=== PATIENT | male | born 1955 | race Caucasian/White ===

== ENCOUNTER 2018-01-30 11:13 | Emergency (ER) | payer OTHER, SELFPAY ==
[2018-01-30 11:31] VITALS: BP 157/81; PULSE 59; RESP 17; TEMP 36.9; O2SAT 98; BMI 31.3
--- NOTE | 2018-01-30 11:42 | PC.NURSE ---
Pt has multiple small abrasions and lacerations to posterior left hand.
--- NOTE | 2018-01-30 11:44 | ED_ITS ---
HPI - Skin/Abscess/Foreign Bdy General Chief complaint: Skin/Abscess/Foreign Body Stated complaint: CAT BITE Time Seen by Provider: 01/30/18 11:16 Source: patient Mode of arrival: ambulatory Limitations: no limitations History of Present Illness HPI narrative: Uwbhj-swpr-[id number] male here for evaluation of multiple cat bites and scratches to his left hand. Patient states that it was his 's CT. He states that it is a purely indoor cat. They were trying to catch the CT so they can take it to the vet and it bit and scratched him. The CT has not been acting abnormal recently. Patient is up-to-date on his tetanus. Has not tried anything for prior to arrival. Related Data Home Medications Medication Instructions Recorded Confirmed CALCIUM CARBONATE 500 mg PO QDAY #0 06/17/11 Coenzyme Q10 (#COQ10) 300 mg PO Q DAY #0 06/17/11 INSULIN LISPRO (#HUMALOG (SHORT 100 u SC SLIDE #0 06/17/11 ACTING)) METHOCARBAMOL (#CARBACOT) 750 mg PO TID #0 06/17/11 Pravastatin Sodium (#PRAVACHOL) 20 mg PO QDAY #0 06/17/11 clonidine HCl 0.2 mg PO BID #0 06/17/11 doxazosin [Cardura] 2 mg PO QDAY #0 06/17/11 furosemide 40 mg PO BID #0 06/17/11 losartan [Cozaar] 100 mg PO QDAY #0 06/17/11 meloxicam [Mobic] 7.5 mg PO QDAY #0 06/17/11 LEVOTHYROXINE SODIUM (#SYNTHROID) 0.25 mg PO #0 02/13/12 amlodipine [Norvasc] 5 mg PO QDAY #0 02/13/12 insulin glargine [Lantus U-100 40 unit SQ QHS #0 02/13/12 Insulin] atorvastatin Q DAY #0 12/26/16 metformin [Glucophage XR] QDAY #0 12/26/16 potassium chloride #0 12/26/16 tramadol PRN #0 12/26/16 Previous Rx's Medication Instructions Recorded amoxicillin-pot clavulanate 1 tab PO Q12H 10 Days #20 tab 01/30/18 Allergies Allergy/AdvReac Type Severity Reaction Status Date / Time SURGICAL GELL Allergy Unknown BLISTERS Uncoded 09/17/17 11:51 TAPE Allergy Unknown BLISTER Uncoded 09/17/17 11:51 Review of Systems Constitutional Denies fever(s) Musculoskeletal Comments: Swelling to left hand Integumentary/Breasts Comments: Multiple cuts and puncture wounds to the back of the left hand Neurologic Comments: No numbness or tingling to the left upper extremity Hematologic/Lymphatic Denies easy bleeding and Denies easy bruising PFSH Surgical History History of carpal tunnel repair History of carpal tunnel repair History of thyroidectomy Status post cholecystectomy Status post knee surgery Status post rotator cuff repair Family History Brother Age: 64 Hypertension High cholesterol Father Age: 84 High cholesterol Grandmother Diabetes mellitus Mother Age: 84 Diabetes mellitus Sister Age: 53 Diabetes mellitus High cholesterol Seizure disorder Social History Smoking Status: Never smoker Exam Initial Vital Signs Initial Vital Signs: Vital Signs Temperature 98.4 F 01/30/18 11:31 Pulse Rate 59 L 01/30/18 11:31 Respiratory Rate 17 01/30/18 11:31 Blood Pressure 157/81 H 01/30/18 11:31 Pulse Oximetry 98 01/30/18 11:31 Const General: cooperative, healthy appearing, comfortable, well developed, well groomed and No acute distress Orientation: alert, awake and oriented x3 Cardio Pulses: radial pulses present on the left Skin Other: Patient with multiple scratches the back of his left hand with the longest being approximately 1 cm and the rest less than 1/2 cm. Has also multiple puncture wounds. No active bleeding. Neuro Other: Sensation intact to light touch left upper extremity Extrem Other: Left wrist unremarkable Neck fingers unremarkable Swelling to the left hand. Psych Appearance: grossly normal and well kempt Course Orders Ordered: ED Orders 01/30/18 11:49 XR hand LT min 3V Stat Vital Signs - 8 hr 01/30/18 11:31 Temperature 98.4 F Pulse Rate 59 L Respiratory Rate 17 Blood Pressure 157/81 H Pulse Oximetry 98 MDM - Skin/Abscess/Foreign Bdy Imaging Data X-ray hand: Radiologist's impression: [address] [address] XRay Report Signed Patient: Chase Lopez MMR#: [id number] : 7Acct:[id number] Age/Sex: 62 / MDate of Service: 01/30/18 Loc: ED Accession Number: [id number] Procedure: XR hand LT min 3V Ordering Provider: Esteban aL D.O. PROCEDURE: XR HAND LT MIN 3V INDICATIONS: Cat bite dorsum eval for FB TECHNIQUE: 3 views of the hand(s) acquired. COMPARISON: None. FINDINGS: Bones: No fractures or dislocations. Carpal bones are normally aligned. No suspicious bony lesions. Soft tissues: No suspicious soft tissue calcifications. No radiodense foreign body identified. No soft tissue gas. Mild soft tissue swelling noted over the dorsum of the hand. IMPRESSION: No radiodense foreign body. Dictated by: Caterina Christina MD, PhD on 01/30/2018 at 12:01 Approved by: Caterina Christina MD, PhD on 01/30/2018 at 12:02 [facility] Narrative Medical decision making narrative: Patient is up-to-date on his tetanus. This is a domesticated house cat that has been acting ?normal? per the patient. Feel this is low risk for rabies. Will hold on rabies immunization for now. X- ray show no radiodense foreign bodies. Neurovascularly intact. Patient did wash his hand here in the emergency department. Will send home with Augmentin. He was given return precautions. He expressed understanding and agreement plan. Discharge Plan Departure Patient Disposition: Home Clinical Impression: Cat bite of hand Instructions: How to Care for a Domestic Animal Bite, DI for Animal Bites Activity Restrictions/Additional Instructions: Make sure you keep your hand elevated. Put ice on the back of your hand. You can wash your hand with soap and water. Take the antibiotics as directed. You can take anti-inflammatories such as Motrin/ibuprofen and/or Tylenol/ acetaminophen for any pain. Return to the emergency department for any new or worsening symptoms. Prescriptions: New amoxicillin-pot clavulanate 875-125 mg tablet 1 tab PO Q12H 10 Days Qty: 20 RF: 0 No Action CALCIUM CARBONATE 500 mg PO QDAY Qty: 0 RF: 0 clonidine HCl 0.1 MG tablet 0.2 mg PO BID Qty: 0 RF: 0 doxazosin [Cardura] 2 MG tablet 2 mg PO QDAY Qty: 0 RF: 0 Coenzyme Q10 (#COQ10) 300 mg PO Q DAY Qty: 0 RF: 0 furosemide 40 MG tablet 40 mg PO BID Qty: 0 RF: 0 INSULIN LISPRO (#HUMALOG (SHORT ACTING)) 100 u SC SLIDE Qty: 0 RF: 0 losartan [Cozaar] 100 MG tablet 100 mg PO QDAY Qty: 0 RF: 0 meloxicam [Mobic] 7.5 MG tablet 7.5 mg PO QDAY Qty: 0 RF: 0 METHOCARBAMOL (#CARBACOT) 750 mg PO TID Qty: 0 RF: 0 Pravastatin Sodium (#PRAVACHOL) 20 mg PO QDAY Qty: 0 RF: 0 LEVOTHYROXINE SODIUM (#SYNTHROID) 0.25 mg PO Qty: 0 RF: 0 insulin glargine [Lantus U-100 Insulin] 100 UNIT/1 ML solution 40 unit SQ QHS Qty: 0 RF: 0 amlodipine [Norvasc] 5 MG tablet 5 mg PO QDAY Qty: 0 RF: 0 atorvastatin 40 MG tablet Q DAY Qty: 0 RF: 0 potassium chloride 10 MEQ tablet extended release Qty: 0 RF: 0 tramadol 50 MG tablet PRN Qty: 0 RF: 0 metformin [Glucophage XR] 500 MG tablet extended release 24 hr QDAY Qty: 0 RF: 0
--- NOTE | 2018-01-30 11:49 | DI.RAD.S_ITS ---
PROCEDURE: XR HAND LT MIN 3V INDICATIONS: Cat bite dorsum eval for FB TECHNIQUE: 3 views of the hand(s) acquired. COMPARISON: None. FINDINGS: Bones: No fractures or dislocations. Carpal bones are normally aligned. No suspicious bony lesions. Soft tissues: No suspicious soft tissue calcifications. No radiodense foreign body identified. No soft tissue gas. Mild soft tissue swelling noted over the dorsum of the hand. IMPRESSION: No radiodense foreign body. Dictated by: Caterina Christina MD, PhD on 01/30/2018 at 12:01 Approved by: Caterina Christina MD, PhD on 01/30/2018 at 12:02
[2018-01-30 12:21] VITALS: BP 176/76; PULSE 55; RESP 14; O2SAT 98
== END 2018-01-30 12:36 | disposition home or self-care (01) ==
PROVIDERS: Emergency Provider Emergency Medicine; PCP Family Medicine
DX: S61.452A Open bite of left hand, initial encounter (principal); W55.01XA Bitten by cat, initial encounter
CPT/HCPCS: 73130; 99282; 99283

== ENCOUNTER → 2018-02-05 08:04 | Outpatient (CLI) | payer OTHER, SELFPAY ==
--- NOTE | 2018-02-05 09:33 | PM.TREADMILL ---
Cardiac Stress Test Report Referral & Results Date Patient Seen: 02/05/18 Time Patient Seen: 09:33 Requesting provider: Nava Gupta Indication: Chest and jaw pain Rest ECG: Unremarkable, poor R-wave progression across precordium on standard treadmill set up Procedure Note: Today following both written and verbal informed consent the patient was exercised according to a standard Mickey protocol patient went for a total of 7 min 33 sec achieving a maximum heart rate of 146 maximum systolic blood pressure of 240. This is approximately 10.1 METS. Exercise was terminated at this point because of targets having been met. Patient was also given Cardiolite through a previously started Hep-Lock IV by the nuclear medicine pet ct technologist approximately 1 minute prior to the cessation of exercise. The saline used to flush the Cardiolite clearly extravasated into the soft tissues. Unclear whether not the isotope when into the vein or not. No ST segment changes at all Normal heart rate and slightly hypertensive blood pressure response to exercise Functional aerobic impairment 10% on the sedentary scale Impression: No evidence of ischemia based on ECG criteria. Perfusion imaging to be reported separately Please note: Actual ECG tracings can be found in the PACS system.
== END ==
PROVIDERS: PCP Family Medicine; Visit Provider Internal Medicine Cardiovascular Disease
DX: R07.9 Chest pain, unspecified (principal); R68.84 Jaw pain

== ENCOUNTER → 2018-02-16 09:29 | Outpatient (CLI) | payer OTHER, SELFPAY ==
--- NOTE | 2018-02-16 13:41 | P.PCN_ITS ---
Cardiac Stress Test Report Referral & Results Date Patient Seen: 02/16/18 Requesting provider: Nava Gupta Rest ECG: Unremarkable Procedure Note: Today following both written and verbal informed consent the patient was exercised according to a standard Mickey protocol patient went for a total of 8 min 46 sec achieving a maximum heart rate of 138 maximum systolic blood pressure of 188. This is approximately 10.1 METS. Exercise was terminated at this point because of targets having been met, and patient unable to proceed. Patient was also given Cardiolite through a previously started Hep-Lock IV by the test cell technician approximately 1 minute prior to the cessation of exercise. There are no ST-T segment changes Normal heart rate and blood pressure response to exercise Functional aerobic impairment rated 0 on the active scale Impression: No ECG evidence of ischemia Excellent exercise capacity Perfusion imaging will be reported separately Please note: Actual ECG tracings can be found in the PACS system.
--- NOTE | 2018-02-16 17:42 | DI.NM.S_ITS ---
DATE OF SERVICE: 02/16/2018 PROCEDURE: Exercise perfusion study. INDICATIONS: Syncope with underlying diabetes mellitus, hypertension, hyperlipidemia. RADIOPHARMACEUTICAL: 30.3 mCi technetium-99m Myoview IV was injected at stress and 30.0 mCi technetium-99m Myoview IV was injected at rest. It was a 1-day protocol. CARDIAC STRESS: Patient underwent exercise perfusion study under the supervision of an attending staff. He walked on Mickey protocol for 8 minutes 46 seconds, achieved 86% of target heart rate and normal blood pressure response, 10.1 METs of workload and functional aerobic impairment 0% on active scale. Baseline rhythm was sinus with left axis with left anterior fascicular block and poor R- wave progression. During stress, there were no obvious ischemic changes. There were no significant arrhythmias. No chest pain. RAW DATA: There was increased sub diaphragmatic activity. Increased gut shadow seen near the inferior border of the heart. GATED STUDY: Resting LV ejection fraction 62% and stress LV ejection fraction 66%. No obvious wall motion abnormalities. No transient ischemic dilatation. Resting end-diastolic volume is 148 mL. TID ratio is 0.99, which is within normal limits. Lung/heart ratio is 0.32, which is within normal limits. MYOCARDIAL PERFUSION SCAN: Stress supine, resting supine images revealed small- to-moderate sized [id number] decreased perfusion of inferior wall, inferior apex which got substantially improved during prone images. However, prone images remained have mildly decreased perfusion of inferior apex. I don't see any significant reversible ischemia. CONCLUSION: 1. No obvious reversible ischemia. 2. There is evidence of diaphragmatic tissue attenuation artifact seen during stress and resting supine images which got significantly improved during prone images. However, prone images remain to have mildly decreased perfusion of inferior apex. Most likely we are dealing with some persistent tissue attenuation artifact. Enhanced gut shadow seen near the inferior border of the heart. Most likely we are dealing with tissue attenuation artifact. Hence, I will call this study likely a normal myocardial perfusion study. 3. Preserved left ventricular (LV) function. No transient ischemic dilatation. No significant ischemic EKG changes. No significant arrhythmias. 4. Overall, this is a low-risk myocardial perfusion scan. Chase Lopez - ANA/russell/ doc#: [id number]/job#: [id number] dd: 02/16/2018 17:09:00 dt: 02/16/2018 17:25:00 DICTATING MD/COPIES TO: Marie Raphael MD COPIES MNE: RAY
== END ==
PROVIDERS: PCP Family Medicine; Visit Provider Internal Medicine Cardiovascular Disease
DX: R07.9 Chest pain, unspecified (principal); R55 Syncope and collapse; E11.9 Type 2 diabetes mellitus without complications; I10 Essential (primary) hypertension; E78.5 Hyperlipidemia, unspecified
CPT/HCPCS: 78452; 93016; 93017; 93018; A9502

== ENCOUNTER 2018-02-19 21:34 | Emergency (ER) | payer OTHER, SELFPAY ==
--- NOTE | 2018-02-19 21:46 | DI.RAD.S_ITS ---
PROCEDURE: XR FOREARM RT 2V INDICATIONS: Left forearm injury, hit with large hammer TECHNIQUE: 2 views of the forearm were acquired. COMPARISON: None. FINDINGS: Bones: No fractures or dislocations. No suspicious bony lesions. Well-corticated osseous fragments distal to the ulnar styloid and laterally adjacent the fifth carpometacarpal joint likely represent the sequela of prior fractures. Soft tissues: No suspicious soft tissue calcifications or masses. IMPRESSION: No convincing radiographic evidence of a left forearm fracture. Consider followup radiographs in 7-10 days if there is continued clinical concern. Dictated by: Minh Spears M.D. on 02/20/2018 at 8:09 Approved by: Minh Spears M.D. on 02/20/2018 at 8:13
[2018-02-19 21:47] VITALS: BP 138/77; PULSE 65; RESP 16; TEMP 36.1; O2SAT 100; BMI 31.0
--- NOTE | 2018-02-19 23:02 | ED.UPPEXIN ---
HPI - Extremity Injury (Upper) General Chief Complaint: Extremity Injury, Upper Stated Complaint: LT FOREARM INJURY Time Seen by Provider: 02/19/18 21:45 Source: patient Mode of arrival: ambulatory Limitations: no limitations History of Present Illness HPI narrative: 62-year-old male with history of hypertension hyperlipidemia presents with the chief complaint of a left forearm injury suffered just prior to arrival. The patient was swinging a sledgehammer when it slipped and struck his left forearm. He now has increasing pain in his forearm and some moderate swelling. He has increasing pain with range of motion. He denies any numbness, tingling or weakness. MD complaint: injury to: left and forearm Other injuries: none Handedness: right Place: home Severity: mild Context: direct blow Related Data Home Medications Medication Instructions Recorded Confirmed CALCIUM CARBONATE 500 mg PO QDAY #0 06/17/11 Coenzyme Q10 (#COQ10) 300 mg PO Q DAY #0 06/17/11 INSULIN LISPRO (#HUMALOG (SHORT 100 u SC SLIDE #0 06/17/11 ACTING)) METHOCARBAMOL (#CARBACOT) 750 mg PO TID #0 06/17/11 Pravastatin Sodium (#PRAVACHOL) 20 mg PO QDAY #0 06/17/11 clonidine HCl 0.2 mg PO BID #0 06/17/11 doxazosin [Cardura] 2 mg PO QDAY #0 06/17/11 furosemide 40 mg PO BID #0 06/17/11 losartan [Cozaar] 100 mg PO QDAY #0 06/17/11 meloxicam [Mobic] 7.5 mg PO QDAY #0 06/17/11 LEVOTHYROXINE SODIUM (#SYNTHROID) 0.25 mg PO #0 02/13/12 amlodipine [Norvasc] 5 mg PO QDAY #0 02/13/12 insulin glargine [Lantus U-100 40 unit SQ QHS #0 02/13/12 Insulin] atorvastatin Q DAY #0 12/26/16 metformin [Glucophage XR] QDAY #0 12/26/16 potassium chloride #0 12/26/16 tramadol PRN #0 12/26/16 Previous Rx's Medication Instructions Recorded hydrocodone-acetaminophen 1 tab PO Q6H PRN #5 tab 01/30/18 Allergies Allergy/AdvReac Type Severity Reaction Status Date / Time SURGICAL GELL Allergy Unknown BLISTERS Uncoded 09/17/17 11:51 TAPE Allergy Unknown BLISTER Uncoded 09/17/17 11:51 Review of Systems Review of Systems All systems reviewed & are unremarkable except as noted in HPI and below Constitutional Denies chills, Denies fever(s), Denies lethargy and Denies weakness Eyes Denies change in vision, Denies eye discharge, Denies irritation and Denies loss of vision ENT Ears, Nose, Mouth, and Throat: Denies change in voice, Denies neck pain and Denies sore throat Cardiovascular Denies chest pain, Denies irregular heart rhythm, Denies lightheadedness, Denies palpitations, Denies dyspnea, Denies dyspnea on exertion and Denies orthopnea Respiratory Denies cough, Denies dyspnea, Denies dyspnea on exertion and Denies wheezing Gastrointestinal Gastrointestinal: Denies abdominal pain, Denies change in bowel habits, Denies diarrhea, Denies nausea and Denies vomiting Genitourinary Denies hematuria, Denies flank pain, Denies urinary incontinence and Denies urinary urgency Musculoskeletal Reports limited range of motion and Denies neck pain Integumentary/Breasts Denies pruritus, Denies erythema, Denies rash and Denies wounds Neurologic Denies confusion, Denies loss of vision and Denies weakness Psychiatric Denies anxiety, Denies confusion, Denies depression, Denies homicidal ideation and Denies suicidal ideation Endocrine Denies palpitations Hematologic/Lymphatic Denies easy bruising Allergic/Immunologic Denies wheezing PFSH Surgical History History of carpal tunnel repair History of carpal tunnel repair History of thyroidectomy Status post cholecystectomy Status post knee surgery Status post rotator cuff repair Family History Brother Age: 64 Hypertension High cholesterol Father Age: 84 High cholesterol Grandmother Diabetes mellitus Mother Age: 84 Diabetes mellitus Sister Age: 53 Diabetes mellitus High cholesterol Seizure disorder Social History Smoking Status: Current every day smoker Exam Narrative Exam Narrative: GENERAL: This is a well-nourished, well-developed patient, in mild distress. HEAD: Atraumatic. Normocephalic. No temporal or scalp tenderness. EYES: Pupils equal round and reactive. Extraocular motions intact. No scleral icterus. No injection or drainage. ENT: Nose without bleeding, purulent drainage or septal hematoma. Throat without erythema, tonsillar hypertrophy or exudate. Uvula midline. Airway patent. NECK: Trachea midline. No JVD or lymphadenopathy. Supple, nontender, no meningeal signs. CARDIOVASCULAR: Regular rate and rhythm without murmurs, gallops, or rubs. RESPIRATORY: Clear to auscultation. Breath sounds equal bilaterally. No wheezes, rales, or rhonchi. GASTROINTESTINAL: Abdomen soft, non-tender, nondistended. No hepato-splenomegaly, or palpable masses. No guarding. EXTREMITIES: Pain and swelling on the medial forearm with some erythema. Compartments are soft. No bony tenderness. Patient has full range of motion and sensation of hand and fingers. Cap refill less than 2 sec and sensation intact. BACK: Nontender without deformity or crepitance. No flank tenderness. NEURO: AOx3. SKIN: No rash or erythema. Initial Vital Signs Initial Vital Signs: Vital Signs Temperature 97 F L 02/19/18 21:47 Pulse Rate 65 02/19/18 21:47 Respiratory Rate 16 02/19/18 21:47 Blood Pressure 138/77 02/19/18 21:47 Pulse Oximetry 100 02/19/18 21:47 Procedures Orthopedic Splinting/Casting Injury #1: Side: left Upper Extremity Injury Location: forearm Upper Extremity Immobilizer: sling/shoulder immobilizer Course Orders Ordered: Discontinued Medications Hydromorphone HCl (Dilaudid) 1 mg IM Q4H PRN PRN Reason: Pain, Severe (7-10) Last Admin: 02/19/18 23:26 Dose: 1 mg Oxycodone/Acetaminophen (Endocet 5/325 Prepack) 1 bottle MISC SEEINSTR ONE Stop: 02/19/18 23:20 Last Admin: 02/19/18 23:26 Dose: 1 bottle Vital Signs - 8 hr 02/19/18 21:47 Temperature 97 F L Pulse Rate 65 Respiratory Rate 16 Blood Pressure 138/77 Pulse Oximetry 100 MDM - Extremity Injury (Upper) MDM Narrative Medical decision making narrative: Patient has normal x-ray but significant pain in his forearm. His compartments are soft and there are no signs of compartment syndrome. Extensive bedside discharge with return precautions given and patient acknowledged understanding. Discharge Plan Departure Patient Disposition: Home Clinical Impression: Contusion of forearm Discharge Date/Time: 02/20/18 00:05 Interventions: ED Discharge Assessment Last Done: 02/20/18 00:21 Instructions: DI for Contusion Activity Restrictions/Additional Instructions: You have been prescribed narcotic medications. While on these medications you cannot drive or operate heavy machinery. Additionally you cannot sign legal documents or perform any duties such as this. Many people get constipated on narcotic medications so it would be advisable to discuss stool softeners with the pharmacist when you turkey picker your prescription. Please understand that we cannot provide further refills of narcotics or controlled substances through the ED and your pain management will need to be through your Primary Care Provider Prescriptions: No Action CALCIUM CARBONATE 500 mg PO QDAY Qty: 0 RF: 0 clonidine HCl 0.1 MG tablet 0.2 mg PO BID Qty: 0 RF: 0 doxazosin [Cardura] 2 MG tablet 2 mg PO QDAY Qty: 0 RF: 0 Coenzyme Q10 (#COQ10) 300 mg PO Q DAY Qty: 0 RF: 0 furosemide 40 MG tablet 40 mg PO BID Qty: 0 RF: 0 INSULIN LISPRO (#HUMALOG (SHORT ACTING)) 100 u SC SLIDE Qty: 0 RF: 0 losartan [Cozaar] 100 MG tablet 100 mg PO QDAY Qty: 0 RF: 0 meloxicam [Mobic] 7.5 MG tablet 7.5 mg PO QDAY Qty: 0 RF: 0 METHOCARBAMOL (#CARBACOT) 750 mg PO TID Qty: 0 RF: 0 Pravastatin Sodium (#PRAVACHOL) 20 mg PO QDAY Qty: 0 RF: 0 LEVOTHYROXINE SODIUM (#SYNTHROID) 0.25 mg PO Qty: 0 RF: 0 insulin glargine [Lantus U-100 Insulin] 100 UNIT/1 ML solution 40 unit SQ QHS Qty: 0 RF: 0 amlodipine [Norvasc] 5 MG tablet 5 mg PO QDAY Qty: 0 RF: 0 atorvastatin 40 MG tablet Q DAY Qty: 0 RF: 0 potassium chloride 10 MEQ tablet extended release Qty: 0 RF: 0 tramadol 50 MG tablet PRN Qty: 0 RF: 0 metformin [Glucophage XR] 500 MG tablet extended release 24 hr QDAY Qty: 0 RF: 0 hydrocodone-acetaminophen 5-325 mg tablet 1 tab PO Q6H PRN (Reason: pain) Qty: 5 RF: 0
[2018-02-19] MEDS: OXYCODONE/APAP 5/325 PREPACK 1 BOTTLE MISC (23:26)
[2018-02-19] MEDS: HYDROMORPHONE 2 MG INJ 1 MG IM (23:26)
[2018-02-19 23:31] VITALS: BP 163/77; PULSE 56; O2SAT 100
== END 2018-02-20 00:05 | disposition home or self-care (01) ==
PROVIDERS: Emergency Provider Emergency Medicine; PCP Family Medicine
DX: S50.12XA Contusion of left forearm, initial encounter (principal); W22.8XXA Striking against or struck by other objects, initial encounter
CPT/HCPCS: 73090; 99282; 99283; J1170

== ENCOUNTER 2019-09-19 16:51 | Emergency (ER) | payer OTHER, SELFPAY ==
[2019-09-19 17:05] VITALS: BP 184/86; PULSE 65; RESP 18; TEMP 36.6; O2SAT 98; BMI 33.2
--- NOTE | 2019-09-19 17:13 | ED_ITS ---
HPI - General Adult General Chief complaint: Eye Problems Stated complaint: states chunk of metal in right eye Time Seen by Provider: 09/19/19 16:53 Source: patient Mode of arrival: Ambulatory Limitations: no limitations History of Present Illness HPI narrative: 64-year-old male here for evaluation of potential metal foreign body in his right eye. He states that he was working with a piece of metal. He was wearing his corrective lenses but no of safety lens is when he felt like a piece of metal came up into his eye. Has never had any eye surgeries in the past. Related Data Home Medications Medication Instructions Recorded Confirmed CALCIUM CARBONATE 500 mg PO QDAY #0 06/17/11 Coenzyme Q10 (#COQ10) 300 mg PO Q DAY #0 06/17/11 INSULIN LISPRO (#HUMALOG (SHORT 100 u SC SLIDE #0 06/17/11 ACTING)) METHOCARBAMOL (#CARBACOT) 750 mg PO TID #0 06/17/11 Pravastatin Sodium (#PRAVACHOL) 20 mg PO QDAY #0 06/17/11 clonidine HCl 0.2 mg PO BID #0 06/17/11 doxazosin [Cardura] 2 mg PO QDAY #0 06/17/11 furosemide 40 mg PO BID #0 06/17/11 losartan [Cozaar] 100 mg PO QDAY #0 06/17/11 meloxicam [Mobic] 7.5 mg PO QDAY #0 06/17/11 LEVOTHYROXINE SODIUM (#SYNTHROID) 0.25 mg PO #0 02/13/12 amlodipine [Norvasc] 5 mg PO QDAY #0 02/13/12 insulin glargine [Lantus U-100 40 unit SQ QHS #0 02/13/12 Insulin] atorvastatin Q DAY #0 12/26/16 metformin [Glucophage XR] QDAY #0 12/26/16 potassium chloride #0 12/26/16 tramadol PRN #0 12/26/16 Previous Rx's Medication Instructions Recorded hydrocodone-acetaminophen 1 tab PO Q6H PRN #5 tab 01/30/18 erythromycin 0.5 inch EYE-RIGHT QID 2 Days #3.5 09/19/19 gram Allergies Allergy/AdvReac Type Severity Reaction Status Date / Time adhesive tape Allergy Blister Verified 09/19/19 17:13 gum mastic Allergy Verified 09/19/19 17:05 [From Mastisol Adhesive] methyl salicylate Allergy Verified 09/19/19 17:05 [From Mastisol Adhesive] storax Allergy Verified 09/19/19 17:05 [From Mastisol Adhesive] amoxicillin AdvReac Mild Diarrhea Verified 09/19/19 17:05 Review of Systems Constitutional Constitutional: Denies fever(s) Eyes Comments: Foreign body irritation to left eye Integumentary/Breasts Skin/Breast: Denies rash Patient History Medical History Hypothyroid (Acute) Surgical History History of carpal tunnel repair History of carpal tunnel repair History of thyroidectomy Status post cholecystectomy Status post knee surgery Status post rotator cuff repair Social History Smoking Status: Current every day smoker Smoking Status: Current every day smoker alcohol intake frequency: 0-2 drinks per day Substance Use Type: does not use Exam Initial Vital Signs Initial Vital Signs: Vital Signs Temperature 98 F 09/19/19 17:05 Pulse Rate 65 09/19/19 17:05 Respiratory Rate 18 09/19/19 17:05 Blood Pressure 184/86 H 09/19/19 17:05 Pulse Oximetry 98 09/19/19 17:05 Const General: cooperative and comfortable Limitations: mental status not altered HENMT Head: normal to inspection and normocephalic Eyes Alignment and Position: alignment normal Conjunctivae: conjunctivae normal Sclera: sclerae normal Cornea: corneas abnormal on the right abrasion and foreign body metallic; without a rust ring Pupils: PERRL EOM: EOM intact bilaterally Resp Effort & Inspection: normal respiratory effort Skin Lesions: no lesions Rashes: no rashes Neuro General: alert and awake Cognition: normal cognition Speech: speech normal Extrem General: normal to inspection and capillary refill normal Procedures Foreign Body EYE Time Out performed: No Location: eye (R) Topical anesthetic used: proparacaine Foreign body: metal Evidence of corneal penetration: No Technique: cotton tip swab Procedure performed under: direct visualization with magnification and slit-lamp Post-procedure medication: ophthalmic antibiotic Patient tolerated procedure: well and no complications Course Orders Ordered: Discontinued Medications Erythromycin (Erythromycin Ophth Oint) 1 applic EYE-RIGHT NOW ONE Stop: 09/19/19 17:12 Last Admin: 09/19/19 17:28 Dose: 1 applic Documented by: JOVANNI Fluorescein Sodium (Ful-Keyla) 1 mg EYE-RIGHT NOW ONE Stop: 09/19/19 16:55 Last Admin: 09/19/19 17:37 Dose: 1 mg Documented by: JOVANNI Fluorescein Sodium (Ful-Keyla) 1 mg EYE-BOTH NOW ONE Stop: 09/19/19 16:57 Last Admin: 09/19/19 17:01 Dose: Not Given Documented by: JOVANNI Proparacaine HCl (Parcaine 0.5% Ophth Linda) 1 drops EYE-RIGHT NOW ONE Stop: 09/19/19 16:54 Last Admin: 09/19/19 17:28 Dose: 1 drop Documented by: JOVANNI Proparacaine HCl (Parcaine 0.5% Ophth Linda) 1 drops EYE-RIGHT NOW ONE Stop: 09/19/19 16:57 Last Admin: 09/19/19 17:02 Dose: Not Given Documented by: JOVANNI Vital Signs Vital signs: Vital Signs - 8 hr 09/19/19 17:05 Temperature 98 F Pulse Rate 65 Respiratory Rate 18 Blood Pressure 184/86 H Pulse Oximetry 98 Medical Decision Making MDM Narrative Medical decision making narrative: Was able to remove a very small piece of metal at the 12 o'clock position inside the limbus of the right eye. There was a residual easily identifiable corneal abrasion at this spot. There were other very small metal flakes throughout the eye. He was irrigated with approximately 250 cc of fluid to his tolerance. A repeat look with the slit lamp shows no further foreign bodies noted. No foreign bodies noted with eversion of the upper lower eyelid. He was given erythromycin ointment. He was given return precautions and follow-up instructions. He expressed understanding and agree ment. Discharge Plan Departure Patient Disposition: Home Clinical Impression: Corneal abrasion Qualifiers: Encounter type: initial encounter Laterality: right Qualified Code(s): S05.01XA - Injury of conjunctiva and corneal abrasion without foreign body, right eye, initial encounter Acute foreign body of right cornea Qualifiers: Encounter type: initial encounter Qualified Code(s): T15.01XA - Foreign body in cornea, right eye, initial encounter Instructions: DI for Corneal Abrasion, DI for Corneal Foreign Body-Eye Activity Restrictions/Additional Instructions: Use the erythromycin ointment as directed. Contact your primary provider for follow-up. Return to the emergency department for any new or worsening symptoms Prescriptions: New erythromycin 5 mg/gram (0.5 %) ointment 0.5 inch EYE-RIGHT QID 2 Days Qty: 3.5 RF: 0 No Action CALCIUM CARBONATE 500 mg PO QDAY Qty: 0 RF: 0 clonidine HCl 0.1 MG tablet 0.2 mg PO BID Qty: 0 RF: 0 doxazosin [Cardura] 2 MG tablet 2 mg PO QDAY Qty: 0 RF: 0 Coenzyme Q10 (#COQ10) 300 mg PO Q DAY Qty: 0 RF: 0 furosemide 40 MG tablet 40 mg PO BID Qty: 0 RF: 0 INSULIN LISPRO (#HUMALOG (SHORT ACTING)) 100 u SC SLIDE Qty: 0 RF: 0 losartan [Cozaar] 100 MG tablet 100 mg PO QDAY Qty: 0 RF: 0 meloxicam [Mobic] 7.5 MG tablet 7.5 mg PO QDAY Qty: 0 RF: 0 METHOCARBAMOL (#CARBACOT) 750 mg PO TID Qty: 0 RF: 0 Pravastatin Sodium (#PRAVACHOL) 20 mg PO QDAY Qty: 0 RF: 0 LEVOTHYROXINE SODIUM (#SYNTHROID) 0.25 mg PO Qty: 0 RF: 0 insulin glargine [Lantus U-100 Insulin] 100 UNIT/1 ML solution 40 unit SQ QHS Qty: 0 RF: 0 amlodipine [Norvasc] 5 MG tablet 5 mg PO QDAY Qty: 0 RF: 0 atorvastatin 40 MG tablet Q DAY Qty: 0 RF: 0 potassium chloride 10 MEQ tablet extended release Qty: 0 RF: 0 tramadol 50 MG tablet PRN Qty: 0 RF: 0 metformin [Glucophage XR] 500 MG tablet extended release 24 hr QDAY Qty: 0 RF: 0 hydrocodone-acetaminophen 5-325 mg tablet 1 tab PO Q6H PRN (Reason: pain) Qty: 5 RF: 0 Referrals: Kimber Calderón MD [Primary Care Provider] -
[2019-09-19] MEDS: PROPARACAINE 0.5% OPHTH SOL 1 DROPS EYE-RIGHT (17:28)
[2019-09-19] MEDS: ERYTHROMYCIN OPHTH 1 GM OINT 1 APPLIC EYE-RIGHT (17:28)
[2019-09-19] MEDS: FLUORESCEIN 1 MG STRIP EYE-RIGHT (17:37)
== END 2019-09-19 18:02 | disposition home or self-care (01) ==
PROVIDERS: Emergency Provider Emergency Medicine; PCP Family Medicine
DX: T15.01XA Foreign body in cornea, right eye, initial encounter (principal); S00.251A Superficial foreign body of right eyelid and periocular area, initial encounter
CPT/HCPCS: 65205; 99281; 99283

== ENCOUNTER 2022-05-19 19:27 | Observation (INO) | payer OTHER, SELFPAY ==
[2022-05-19] VITALS (31 sets, daily range): BP systolic 126–199; BP diastolic 60–79; PULSE 54–658; RESP 14–24; TEMP 36.8; O2SAT 96–99; BMI 34.0
--- NOTE | 2022-05-19 19:36 | DI.RAD.S_ITS ---
PROCEDURE: XR CHEST 1V INDICATIONS: chest pain TECHNIQUE: One view of the chest was acquired. COMPARISON: None. FINDINGS: Surgical changes and devices: None. Lungs and pleura: Lungs are clear. No pleural effusions or pneumothorax. Mediastinum: Mediastinal contours appear normal. Heart size is normal. Bones and chest wall: No suspicious bony lesions. Overlying soft tissues appear unremarkable. IMPRESSION: No acute cardiopulmonary process demonstrated radiographically. Dictated by: Markus Hammer M.D. on 05/19/2022 at 21:35 Approved by: Markus Hammer M.D. on 05/19/2022 at 21:35
--- NOTE | 2022-05-19 19:37 | ED.CHESTPAIN ---
HPI - Chest Pain General Chief Complaint: Chest Pain Stated Complaint: L arm pain/shoulder, tight chest, 45 minutes Time Seen by Provider: 05/19/22 19:35 History of Present Illness HPI narrative: 67M daily smoker with history of hypertension, hyperlipidemia, diabetes presents with a friend and a chief complaint of 4/10 left chest pain that started while at rest about 45 minutes ago. He was in his normal state of health all day denies any recent unexplained fatigue, exertional discomfort, exercise intolerance. He was sitting on the couch watching some TV when the symptoms came on. He denies any obvious provocation or palliation but states he has radiation to his shoulder and arm. He denies associated symptoms such as dizziness, weakness or lightheadedness. He denies any shortness of breath. He does admit to some nausea and diaphoresis. He denies any history of heart attack but has had TIAs. He is had no change in medications or diet. He denies any recent trauma or injury nor recent travel. Related Data Home Medications Medication Instructions Recorded Confirmed CALCIUM CARBONATE 500 mg PO PRN PRN Acid Reflux ##0 06/17/11 05/20/22 Coenzyme Q10 (#COQ10) 300 mg PO Q DAY ##0 06/17/11 05/20/22 INSULIN LISPRO (#HUMALOG (SHORT 100 u SC SLIDE ##0 06/17/11 ACTING)) furosemide 40 mg tablet 40 mg PO BID ##0 06/17/11 05/20/22 losartan 100 mg tablet (Cozaar) 100 mg PO QDAY ##0 06/17/11 05/20/22 LEVOTHYROXINE SODIUM (#SYNTHROID) 112 mcg PO DAILY ##0 02/13/12 05/20/22 amlodipine 5 mg tablet (Norvasc) 5 mg PO QDAY ##0 02/13/12 05/20/22 insulin glargine 100 unit/mL 15 unit SQ QHS ##0 02/13/12 05/20/22 subcutaneous solution (Lantus U-100 Insulin) atorvastatin 40 mg tablet 40 mg Q DAY ##0 12/26/16 05/20/22 clopidogrel 75 mg tablet 75 mg PO DAILY 05/20/22 05/20/22 lorazepam 0.5 mg tablet 0.5 mg PO TID PRN Anxiety 05/20/22 05/20/22 metformin 500 mg tablet 500 mg PO BID 05/20/22 05/20/22 metoprolol tartrate 25 mg tablet 12.5 mg PO BID 05/20/22 05/20/22 sertraline 100 mg tablet 100 mg PO DAILY 05/20/22 05/20/22 spironolactone 50 mg tablet 50 mg PO DAILY 05/20/22 05/20/22 tamsulosin 0.4 mg PO DAILY 05/20/22 05/20/22 Allergies Allergy/AdvReac Type Severity Reaction Status Date / Time adhesive tape Allergy Blister Verified 09/19/19 17:13 gum mastic Allergy Verified 09/19/19 17:05 [From Mastisol Adhesive] methyl salicylate Allergy Verified 09/19/19 17:05 [From Mastisol Adhesive] storax Allergy Verified 09/19/19 17:05 [From Mastisol Adhesive] amoxicillin AdvReac Mild Diarrhea Verified 09/19/19 17:05 Review of Systems Review of Systems Narrative: GENERAL: See HPI HEENT: Denies sinus pain, ear pain, sore throat, difficulty swallowing, dizziness. RESPIRATORY: Denies dyspnea, cough, wheezing, hemoptysis, sputum. CARDIOVASCULAR: See HPI GASTROINTESTINAL: See HPI : Denies dysuria, frequency, incontinence, hematuria, urinary retention. MUSCULOSKELETAL: denies weakness, joint pain, or bony pain SKIN: Denies rash, skin lesions, or other NEUROLOGIC: Denies weakness, headache, numbness, change in speech, confusion, seizures, incoordination. PSYCHIATRIC: No concerning psychosocial issues. 12 point review of systems is negative except for those stated above Patient History Medical History (Updated 05/20/22 @ 02:04 by Mack Bryant DO) Hypothyroid Surgical History History of carpal tunnel repair History of carpal tunnel repair History of thyroidectomy Status post cholecystectomy Status post knee surgery Status post rotator cuff repair Family History Brother Age: 68 Hypertension High cholesterol Father Age: 88 High cholesterol Grandmother Diabetes mellitus Mother Age: 88 Diabetes mellitus Sister Age: 57 Diabetes mellitus High cholesterol Seizure disorder Social History household members: spouse Smoking Status: Never smoker Smoking Status: Current every day smoker alcohol intake frequency: 0-2 drinks per day Substance Use Type: does not use Exam Narrative Exam Narrative: GENERAL: [67] year old patient appears stated age. Well-developed patient, in mild distress. Obviously uncomfortable, mildly diaphoretic HEAD: Atraumatic. Normocephalic. EYES: Pupils equal round and reactive. Extraocular motions intact. No scleral icterus. No injection or drainage. ENT: Nose without bleeding, purulent drainage. Throat without erythema, tonsillar hypertrophy or exudate. Airway patent. NECK: Trachea midline. Non tender CARDIOVASCULAR: Regular rate and rhythm without murmurs, gallops, or rubs. RESPIRATORY: Clear to auscultation. Breath sounds equal bilaterally. No wheezes, rales, or rhonchi. GASTROINTESTINAL: Abdomen soft, non-tender, nondistended. EXTREMITIES: No edema or joint tenderness. BACK: Nontender without deformity or crepitance. No flank tenderness. NEURO: AOx3. SKIN: No rash or erythema of visible areas Initial Vital Signs Initial Vital Signs: Vital Signs Pulse Rate 71 05/19/22 19:41 Blood Pressure 199/71 H 05/19/22 19:41 Course Orders Ordered: ED Orders 05/19/22 21:37 Troponin & CK Cardiac Panel Stat 05/20/22 00:22 Exercise treadmill NON NUC Urgent 05/20/22 05:00 Troponin I Urgent Acetaminophen (Acetaminophen 325 Mg Tablet) 650 mg PO Q6H PRN PRN Reason: Fever/Mild Pain (1-3) Amlodipine Besylate (Amlodipine 5 Mg Tablet) 5 mg PO DAILY [facility] Last Admin: 05/20/22 02:35 Dose: 5 mg Documented By: MS Aspirin (Aspirin Ec 81 Mg Tablet) 81 mg PO DAILY [facility] Atorvastatin Calcium (Atorvastatin 20 Mg Tablet) 40 mg PO BEDTIME [facility] Doxazosin Mesylate (Doxazosin 2 Mg Tablet) 2 mg PO DAILY [facility] Last Admin: 05/20/22 02:36 Dose: Not Given Documented By: MS Enoxaparin Sodium (Enoxaparin 40 Mg/0.4 Ml Syringe) 40 mg SUBCUT DAILY [facility] Furosemide (Furosemide 40 Mg Tablet) 40 mg PO BID [facility] Insulin Glargine (Insulin Glargine 100 Unit/Ml 3ml Pen) 40 unit SUBCUT BEDTIME [facility] Last Admin: 05/20/22 02:33 Dose: 15 unit Documented By: Co-signed By: SARAHI Levothyroxine Sodium (Levothyroxine 25 Mcg Tablet) 25 mcg PO DAILY@0600 [facility] Losartan Potassium (Losartan 50 Mg Tablet) 100 mg PO DAILY [facility] Last Admin: 05/20/22 02:35 Dose: 100 mg Documented By: Sodium Chloride (Sodium Chloride 0.9% Flush) 10 ml IV BID [facility] Discontinued Medications Acetaminophen (Acetaminophen 325 Mg Tablet) 975 mg PO NOW ONE Stop: 05/19/22 21:26 Last Admin: 05/19/22 21:29 Dose: 975 mg Documented By: WILLI Aspirin (Aspirin 81 Mg Chew Tab) 324 mg PO NOW ONE Stop: 05/19/22 19:37 Last Admin: 05/19/22 19:40 Dose: 324 mg Documented By: WILLI Sodium Chloride (Normal Saline 0.9%) 1,000 mls @ 150 mls/hr IV CONT [facility] Last Infusion: 05/20/22 01:33 Dose: 0 mls/hr Documented By: Admin: 05/19/22 19:48 Dose: 150 mls/hr Documented By: WILLI Nitroglycerin (Nitroglycerin 0.4 Mg Sl Tab) 0.4 mg SL [id number] PRN PRN Reason: Chest Pain Last Admin: 05/19/22 19:52 Dose: 0.4 mg Documented By: Admin: 05/19/22 19:46 Dose: 0.4 mg Documented By: Admin: 05/19/22 19:41 Dose: 0.4 mg Documented By: WILLI Reevaluation(s) Reevaluation #1: Pain all but completely gone after 3 nitro, he has developed a headache Vital Signs Vital signs: Vital Signs - 8 hr 05/19/22 21:50 05/19/22 21:50 05/19/22 22:00 Pulse Rate 56 L Respiratory Rate 20 Blood Pressure 131/60 143/67 H Pulse Oximetry 98 05/19/22 22:00 05/19/22 22:10 05/19/22 22:10 Pulse Rate 56 L 56 L Respiratory Rate 24 Blood Pressure 146/70 H Pulse Oximetry 98 98 05/19/22 22:20 05/19/22 22:20 05/19/22 22:30 Pulse Rate 60 Respiratory Rate 18 Blood Pressure 146/68 H 133/63 Pulse Oximetry 99 05/19/22 22:30 05/19/22 22:40 05/19/22 22:40 Pulse Rate 57 L 59 L Respiratory Rate 22 19 Blood Pressure 132/63 Pulse Oximetry 99 96 05/19/22 22:50 05/19/22 22:50 05/19/22 23:00 Pulse Rate 60 Respiratory Rate 19 Blood Pressure 129/62 135/65 Pulse Oximetry 97 05/19/22 23:00 05/19/22 23:10 05/19/22 23:10 Pulse Rate 61 59 L Respiratory Rate 23 16 Blood Pressure 137/63 Pulse Oximetry 99 98 05/19/22 23:20 05/19/22 23:20 05/19/22 23:30 Pulse Rate 59 L 65 Respiratory Rate 18 Blood Pressure 132/63 Pulse Oximetry 98 99 05/19/22 23:47 05/19/22 23:47 05/20/22 00:00 Pulse Rate 63 60 Respiratory Rate 24 19 Blood Pressure 152/67 H Pulse Oximetry 98 97 05/20/22 00:27 05/20/22 00:27 05/20/22 00:30 Pulse Rate 63 63 Respiratory Rate 22 20 Blood Pressure 149/67 H Pulse Oximetry 97 97 MDM - Chest Pain Lab Data Result diagrams: 05/19/22 19:22 05/19/22 19:22 Labs: Lab Results 05/19/22 05/19/22 05/19/22 Range/Units 19:22 19:22 19:22 WBC 8.1 (4.5-11.0) X10^3/uL RBC 4.00 L (4.5-5.9) X10^6/uL Hgb 11.2 L (13.5-17.5) g/dL Hct 33.4 L (41-53) % MCV 83.3 (80-100) fL MCH 28.1 (26-34) PG MCHC 33.7 (30-36) % RDW 14.0 (11.6-14.8) % Plt Count 303 (150-400) X10^3/uL Neut % (Auto) 68.6 (50-75) % Lymph % (Auto) 20.9 L (25-40) % [place] % (Auto) 7.9 (3-14) % Eos % (Auto) 1.8 L (2-4) % Baso % (Auto) 0.8 (0-2) % Neut # (Auto) 5500 (1565-2499) /uL Lymph # (Auto) 1700 (2647-1565) /uL [place] # (Auto) 600 (0-900) /uL Eos # (Auto) 100 (0-450) /uL Baso # (Auto) 100 (0-100) /uL PT 11.2 (10.1-12.7) SECONDS INR 1.0 (0.9-1.3) APTT 35 (26-36) SECONDS D-Dimer (<500) ng/ml Sodium 140 (137-145) mmol/L Potassium 3.7 (3.4-5.1) mmol/L Chloride 104 (98-107) mmol/L Carbon Dioxide 25 (22-32) mmol/L BUN 29 H (9-20) mg/dL Creatinine 1.37 H (0.66-1.25) mg/dL Estimated GFR 57 L (>60) mL/min BUN/Creatinine Ratio 21.2 (6-22) Glucose 158 H (80-110) mg/dL Calcium 7.5 L (8.4-10.2) mg/dL Total Bilirubin 0.4 (0.2-1.3) mg/dL AST 32 (17-59) IU/L ALT 28 (<50) IU/L Alkaline Phosphatase 98 (38-126) U/L Total Creatine Kinase 346 H (55-170) U/L CK-MB (CK-2) 3.06 H (<2.37) ng/mL CK-MB (CK-2) Rel Index 0.9 L (1.5-5.0) % Troponin I < 0.012 (0.01-0.034) ng/mL NT-Pro-B Natriuret Pep 102 (<125) pg/mL Total Protein 7.6 (6.3-8.2) g/dL Albumin 4.3 (3.5-5.0) g/dL Globulin 3.3 (1.7-4.1) g/dL Albumin/Globulin Ratio 1.3 (1.0-2.8) Lipase 201 (23-300) U/L SARS-CoV-2 (PCR) (Negative) 05/19/22 05/19/22 05/19/22 Range/Units 19:33 19:37 21:37 WBC (4.5-11.0) X10^3/uL RBC (4.5-5.9) X10^6/uL Hgb (13.5-17.5) g/dL Hct (41-53) % MCV (80-100) fL MCH (26-34) PG MCHC (30-36) % RDW (11.6-14.8) % Plt Count (150-400) X10^3/uL Neut % (Auto) (50-75) % Lymph % (Auto) (25-40) % [place] % (Auto) (3-14) % Eos % (Auto) (2-4) % Baso % (Auto) (0-2) % Neut # (Auto) (6635-1009) /uL Lymph # (Auto) (3742-3493) /uL [place] # (Auto) (0-900) /uL Eos # (Auto) (0-450) /uL Baso # (Auto) (0-100) /uL PT (10.1-12.7) SECONDS INR (0.9-1.3) APTT (26-36) SECONDS D-Dimer 415 (<500) ng/ml Sodium (137-145) mmol/L Potassium (3.4-5.1) mmol/L Chloride (98-107) mmol/L Carbon Dioxide (22-32) mmol/L BUN (9-20) mg/dL Creatinine (0.66-1.25) mg/dL Estimated GFR (>60) mL/min BUN/Creatinine Ratio (6-22) Glucose (80-110) mg/dL Calcium (8.4-10.2) mg/dL Total Bilirubin (0.2-1.3) mg/dL AST (17-59) IU/L ALT (<50) IU/L Alkaline Phosphatase (38-126) U/L Total Creatine Kinase 282 H (55-170) U/L CK-MB (CK-2) 2.23 (<2.37) ng/mL CK-MB (CK-2) Rel Index 0.8 L (1.5-5.0) % Troponin I < 0.012 (0.01-0.034) ng/mL NT-Pro-B Natriuret Pep (<125) pg/mL Total Protein (6.3-8.2) g/dL Albumin (3.5-5.0) g/dL Globulin (1.7-4.1) g/dL Albumin/Globulin Ratio (1.0-2.8) Lipase (23-300) U/L SARS-CoV-2 (PCR) Negative (Negative) ECG Data Interpretation: [1938] EKG is normal sinus rhythm rate [73 ] and free of any signs of ischemia or ectopy. No ST segmental elevation or depression. No T wave inversions Discharge Plan Departure Patient Disposition: Admitted as Observation Clinical Impression: Chest pain Admit Date/Time: 05/20/22 00:47 Admit Provider: Leonard Schwarz
[2022-05-19] MEDS: ASPIRIN 81 MG CHEW TAB 324 MG PO (19:40)
[2022-05-19] MEDS: NITROGLYCERIN 0.4 MG SL TAB SL ×3 (19:41→19:52)
[2022-05-19 19:43] LABS: Add Manual Diff / Slide Review NO; Basophils Absolute Auto 100 /uL (0-100); Basophils Percent Auto 0.8 % (0-2); Eosinophils Absolute Auto 100 /uL (0-450); Eosinophils Percent Auto 1.8 % (2-4); Hematocrit 33.4 % (41-53); Hemoglobin 11.2 g/dL (13.5-17.5); Lymphocytes Absolute Auto 1700 /uL (1100-4500); Lymphocytes Percent Auto 20.9 % (25-40); Mean Corpuscular HGB Conc 33.7 % (30-36); Mean Corpuscular Hemoglobin 28.1 PG (26-34); Mean Corpuscular Volume 83.3 fL (80-100); Monocytes Absolute Auto 600 /uL (0-900); Monocytes Percent Auto 7.9 % (3-14); Neutrophils Absolute Auto 5500 /uL (1500-7000); Neutrophils Percent Auto 68.6 % (50-75); Platelet Count 303 X10^3/uL (150-400); White Blood Cell Count 8.1 X10^3/uL (4.5-11.0)
[2022-05-19] MEDS: SODIUM CHLORIDE 0.9% 1,000 ML 150 ML IV (19:48)
[2022-05-19 19:50] LABS: Prothrombin Time 11.2 SECONDS (10.1-12.7)
[2022-05-19 19:52] LABS: PTT Partial Thromboplastin Tim 35 SECONDS (26-36)
[2022-05-19 19:54] LABS: Alanine Aminotransferase 28 IU/L (<50); Albumin 4.3 g/dL (3.5-5.0); Albumin Globulin Ratio 1.3 (1.0-2.8); Alkaline Phosphatase 98 U/L (38-126); Aspartate Aminotransferase 32 IU/L (17-59); BUN Creatinine Ratio 21.2 (6-22); Bilirubin Total 0.4 mg/dL (0.2-1.3); Blood Urea Nitrogen 29 mg/dL (9-20); Calcium 7.5 mg/dL (8.4-10.2); Carbon Dioxide 25 mmol/L (22-32); Chloride 104 mmol/L (98-107); Creatine Kinase 346 U/L (55-170); Estimated Glomerular Filt Rate 57 mL/min (>60); Globulin 3.3 g/dL (1.7-4.1); Glucose 158 mg/dL (80-110); HEMOLYSIS < 15 (0-50); Lipase 201 U/L (23-300); Potassium 3.7 mmol/L (3.4-5.1); Sodium 140 mmol/L (137-145); Total Protein 7.6 g/dL (6.3-8.2)
[2022-05-19 20:05] LABS: COVID19 -Nasal RAPID Negative (Negative)
[2022-05-19 20:06] LABS: NT-proBNP (BNP-Adult 18+) 102 pg/mL (<125); Troponin I < 0.012 ng/mL (0.01-0.034)
[2022-05-19 20:09] LABS: CKMB % Relative Index 0.9 % (1.5-5.0); Creatine Kinase MB 3.06 ng/mL (<2.37)
[2022-05-19 21:14] LABS: D Dimer 415 ng/ml (<500)
[2022-05-19] MEDS: ACETAMINOPHEN 325 MG TABLET 975 MG PO (21:29)
--- NOTE | 2022-05-19 21:41 | PC.NURSE ---
Pt reporting new onset of sharp, RLQ pain. Provider aware.
[2022-05-19 21:57] LABS: Creatine Kinase 282 U/L (55-170)
[2022-05-19 22:10] LABS: Troponin I < 0.012 ng/mL (0.01-0.034)
[2022-05-19 22:12] LABS: CKMB % Relative Index 0.8 % (1.5-5.0); Creatine Kinase MB 2.23 ng/mL (<2.37)
--- NOTE | 2022-05-19 23:07 | PC.NURSE ---
Pt was laid flat. Shortly after he reported feeling a blanco of warmth. Pt was sat upright and this sensation subsided.
[2022-05-20] VITALS (14 sets, daily range): BP systolic 122–151; BP diastolic 62–83; PULSE 58–70; RESP 13–22; TEMP 36.3–36.7; O2SAT 96–100; BMI 34.0
--- NOTE | 2022-05-20 00:58 | PM.HP.1 ---
History of Present Illness History of Present Illness Date Patient Seen: 05/20/22 Time Patient Seen: 00:15 Chief complaint: L arm pain/shoulder, tight chest, 45 minutes Narrative: Mr. Lopez is a 67M with PMH DM, HTN, HL who presents to the hospital with chest tightness and left arm pain. He states he has never had pain like this before. He had no shortness of breath with this. He did have diaphoresis. He says the discomfort in his chest isn't pain but it is tight. This discomfort started at rest. No cough, fevers/chills. In the ED workup was done, vitals notable for elevated blood pressure. Labs notable for WBC 8.1, hgb 11.2, plts 303, creatinine 1.37. INR 1.0. Trop negative. BNP 102. COVID negative. EKG shows no acute abnormalities. Chest xray showed no acute abnormalities. He was ordered for aspirin and admitted for further treatment. Patient History Medical History Hypothyroid Surgical History History of carpal tunnel repair History of carpal tunnel repair History of thyroidectomy Status post cholecystectomy Status post knee surgery Status post rotator cuff repair Family & Social History Family History Brother Age: 68 Hypertension High cholesterol Father Age: 88 High cholesterol Grandmother Diabetes mellitus Mother Age: 88 Diabetes mellitus Sister Age: 57 Diabetes mellitus High cholesterol Seizure disorder Safety & Behavioral: Feels Safe in Current Yes Environment Been Physically Hurt or No Threatened By a Person Tobacco & Substance use: Smoking Status Current every day smoker alcohol intake frequency 0-2 drinks per day Substance Use Type does not use Meds Home Medications and Allergies Home Medications Medication Instructions Recorded Confirmed Type CALCIUM CARBONATE 500 mg PO QDAY ##0 06/17/11 History Coenzyme Q10 (#COQ10) 300 mg PO Q DAY ##0 06/17/11 History INSULIN LISPRO (#HUMALOG (SHORT 100 u SC SLIDE ##0 06/17/11 History ACTING)) METHOCARBAMOL (#CARBACOT) 750 mg PO TID ##0 06/17/11 History Pravastatin Sodium (#PRAVACHOL) 20 mg PO QDAY ##0 06/17/11 History clonidine HCl 0.1 mg tablet 0.2 mg PO BID ##0 06/17/11 History doxazosin 2 mg tablet (Cardura) 2 mg PO QDAY ##0 06/17/11 History furosemide 40 mg tablet 40 mg PO BID ##0 06/17/11 History losartan 100 mg tablet (Cozaar) 100 mg PO QDAY ##0 06/17/11 History meloxicam 7.5 mg tablet (Mobic) 7.5 mg PO QDAY ##0 06/17/11 History LEVOTHYROXINE SODIUM (#SYNTHROID) 0.25 mg PO ##0 02/13/12 History amlodipine 5 mg tablet (Norvasc) 5 mg PO QDAY ##0 02/13/12 History insulin glargine 100 unit/mL 40 unit SQ QHS ##0 02/13/12 History subcutaneous solution (Lantus U-100 Insulin) atorvastatin 40 mg tablet Q DAY ##0 12/26/16 History metformin 500 mg tablet,extended QDAY ##0 12/26/16 History release 24 hr (Glucophage XR) potassium chloride 10 mEq ##0 12/26/16 History tablet,extended release tramadol 50 mg tablet PRN ##0 12/26/16 History hydrocodone 5 mg-acetaminophen 325 1 tab PO Q6H PRN pain #5 tabs 01/30/18 Rx mg tablet Allergies Allergy/AdvReac Type Severity Reaction Status Date / Time adhesive tape Allergy Blister Verified 09/19/19 17:13 gum mastic Allergy Verified 09/19/19 17:05 [From Mastisol Adhesive] methyl salicylate Allergy Verified 09/19/19 17:05 [From Mastisol Adhesive] storax Allergy Verified 09/19/19 17:05 [From Mastisol Adhesive] amoxicillin AdvReac Mild Diarrhea Verified 09/19/19 17:05 Review of Systems Review of Systems Narrative: 14 systems reviewed and negative aside from what is noted in HPI Exam Vital Signs (past 8 hours): - 05/19/22 19:41 05/19/22 19:42 05/19/22 19:45 Temperature 98.2 F Pulse Rate 71 81 68 Respiratory Rate 16 14 Blood Pressure 199/71 H 199/71 H 159/72 H Pulse Oximetry 99 98 Oxygen Delivery Method Room Air Room Air 05/19/22 19:46 05/19/22 19:52 05/19/22 19:55 Temperature Pulse Rate 658 H 66 Respiratory Rate 16 Blood Pressure 159/72 H 152/67 H 152/72 H Pulse Oximetry 99 Oxygen Delivery Method 05/19/22 19:50 05/19/22 19:44 05/19/22 19:45 Temperature Pulse Rate 68 70 69 Respiratory Rate 19 17 Blood Pressure Pulse Oximetry 98 98 Oxygen Delivery Method 05/19/22 19:45 05/19/22 19:50 05/19/22 19:50 Temperature Pulse Rate 71 Respiratory Rate 22 Blood Pressure 159/72 H 152/67 H Pulse Oximetry 98 Oxygen Delivery Method 05/19/22 19:55 05/19/22 19:55 05/19/22 20:00 Temperature Pulse Rate 66 Respiratory Rate 16 Blood Pressure 152/72 H 135/62 Pulse Oximetry 98 Oxygen Delivery Method 05/19/22 20:00 05/19/22 20:10 05/19/22 20:10 Temperature Pulse Rate 62 62 Respiratory Rate 15 Blood Pressure 128/61 Pulse Oximetry 99 98 Oxygen Delivery Method 05/19/22 20:20 05/19/22 20:20 05/19/22 20:30 Temperature Pulse Rate 60 Respiratory Rate Blood Pressure 126/64 131/66 Pulse Oximetry 97 Oxygen Delivery Method 05/19/22 20:30 05/19/22 20:40 05/19/22 20:40 Temperature Pulse Rate 59 L 57 L Respiratory Rate Blood Pressure 138/70 Pulse Oximetry 97 98 Oxygen Delivery Method 05/19/22 20:50 05/19/22 20:50 05/19/22 21:00 Temperature Pulse Rate 58 L Respiratory Rate 18 Blood Pressure 148/74 H 143/69 H Pulse Oximetry 98 Oxygen Delivery Method 05/19/22 21:00 05/19/22 21:10 05/19/22 21:10 Temperature Pulse Rate 55 L 56 L Respiratory Rate 16 Blood Pressure 139/66 Pulse Oximetry 98 99 Oxygen Delivery Method 05/19/22 21:21 05/19/22 21:21 05/19/22 21:30 Temperature Pulse Rate 55 L Respiratory Rate 16 Blood Pressure 143/67 H 144/79 H Pulse Oximetry 98 Oxygen Delivery Method 05/19/22 21:30 05/19/22 21:40 05/19/22 21:40 Temperature Pulse Rate 56 L 54 L Respiratory Rate 24 20 Blood Pressure 131/62 Pulse Oximetry 98 97 Oxygen Delivery Method 05/19/22 21:50 05/19/22 21:50 05/19/22 22:00 Temperature Pulse Rate 56 L Respiratory Rate 20 Blood Pressure 131/60 143/67 H Pulse Oximetry 98 Oxygen Delivery Method 05/19/22 22:00 05/19/22 22:10 05/19/22 22:10 Temperature Pulse Rate 56 L 56 L Respiratory Rate 24 Blood Pressure 146/70 H Pulse Oximetry 98 98 Oxygen Delivery Method 05/19/22 22:20 05/19/22 22:20 05/19/22 22:30 Temperature Pulse Rate 60 Respiratory Rate 18 Blood Pressure 146/68 H 133/63 Pulse Oximetry 99 Oxygen Delivery Method 05/19/22 22:30 05/19/22 22:40 05/19/22 22:40 Temperature Pulse Rate 57 L 59 L Respiratory Rate 22 19 Blood Pressure 132/63 Pulse Oximetry 99 96 Oxygen Delivery Method 05/19/22 22:50 05/19/22 22:50 05/19/22 23:00 Temperature Pulse Rate 60 Respiratory Rate 19 Blood Pressure 129/62 135/65 Pulse Oximetry 97 Oxygen Delivery Method 05/19/22 23:00 05/19/22 23:10 05/19/22 23:10 Temperature Pulse Rate 61 59 L Respiratory Rate 23 16 Blood Pressure 137/63 Pulse Oximetry 99 98 Oxygen Delivery Method 05/19/22 23:20 05/19/22 23:20 05/19/22 23:30 Temperature Pulse Rate 59 L 65 Respiratory Rate 18 Blood Pressure 132/63 Pulse Oximetry 98 99 Oxygen Delivery Method 05/19/22 23:47 05/19/22 23:47 05/20/22 00:00 Temperature Pulse Rate 63 60 Respiratory Rate 24 19 Blood Pressure 152/67 H Pulse Oximetry 98 97 Oxygen Delivery Method Oxygen Delivery Method Room Air Narrative Exam Narrative: GEN: no acute distress HEENT: moist mucous membranes, PERRL NECK: trachea midline, no JVD PULM: clear bilaterally, no wheezes, rhonchi, rales CV: regular rate and rhythm, no murmurs ABD: soft, nontender nondistended, no organomegaly EXT: warm and well perfused with no edema NEURO: awake, alert, oriented, no focal deficits Objective Labs Result Diagrams: 05/19/22 19:22 05/19/22 19:22 Labs: Laboratory Results - last 24 hr 05/19/22 05/19/22 05/19/22 19:22 19:22 19:22 WBC 8.1 RBC 4.00 L Hgb 11.2 L Hct 33.4 L MCV 83.3 MCH 28.1 MCHC 33.7 RDW 14.0 Plt Count 303 Neut % (Auto) 68.6 Lymph % (Auto) 20.9 L [place] % (Auto) 7.9 Eos % (Auto) 1.8 L Baso % (Auto) 0.8 Neut # (Auto) 5500 Lymph # (Auto) 1700 [place] # (Auto) 600 Eos # (Auto) 100 Baso # (Auto) 100 PT 11.2 INR 1.0 APTT 35 D-Dimer Sodium 140 Potassium 3.7 Chloride 104 Carbon Dioxide 25 BUN 29 H Creatinine 1.37 H Estimated GFR 57 L BUN/Creatinine Ratio 21.2 Glucose 158 H Calcium 7.5 L Total Bilirubin 0.4 AST 32 ALT 28 Alkaline Phosphatase 98 Total Creatine Kinase 346 H CK-MB (CK-2) 3.06 H CK-MB (CK-2) Rel Index 0.9 L Troponin I < 0.012 NT-Pro-B Natriuret Pep 102 Total Protein 7.6 Albumin 4.3 Globulin 3.3 Albumin/Globulin Ratio 1.3 Lipase 201 SARS-CoV-2 (PCR) 05/19/22 05/19/22 05/19/22 19:33 19:37 21:37 WBC RBC Hgb Hct MCV MCH MCHC RDW Plt Count Neut % (Auto) Lymph % (Auto) [place] % (Auto) Eos % (Auto) Baso % (Auto) Neut # (Auto) Lymph # (Auto) [place] # (Auto) Eos # (Auto) Baso # (Auto) PT INR APTT D-Dimer 415 Sodium Potassium Chloride Carbon Dioxide BUN Creatinine Estimated GFR BUN/Creatinine Ratio Glucose Calcium Total Bilirubin AST ALT Alkaline Phosphatase Total Creatine Kinase 282 H CK-MB (CK-2) 2.23 CK-MB (CK-2) Rel Index 0.8 L Troponin I < 0.012 NT-Pro-B Natriuret Pep Total Protein Albumin Globulin Albumin/Globulin Ratio Lipase SARS-CoV-2 (PCR) Negative Assessment & Plan Assessment & Plan narrative: 1. Chest pain -etiology concerning for cardiac etiology -has multiple risk factors -EKG showed no acute ischemia -trop negative x2 -HEART score 5 -ordered for ECHO, and plan for exercise stress test -ordered aspirin, statin 2. Type 2 Diabetes -continue insulin sliding scale -continue lantus 40U daily -hold oral medications 3. Hypothyroidism -continue synthroid 4. Hypertension -continue amlodipine, losartan, lasix 5. Elevated creatinine -baseline unknown -suspect this is secondary to CKD stage 2 from DM, HTN -trend creatinine daily CODE: Full Proxy: Juliet Lopez, I have utilized all available resources to reconcile the patient's home medications Time Spent With Patient Critical Care time: I spent a total of [] minutes of critical care time on this patient's care today; this time is exclusive of procedural time.
[2022-05-20] MEDS: INSULIN GLARGINE 100 UNIT/ML 3ML PEN 40 UNIT SUBCUT ×2 (02:33→20:00)
[2022-05-20] MEDS: AMLODIPINE 5 MG TABLET PO ×2 (02:35→13:38)
[2022-05-20] MEDS: LOSARTAN 50 MG TABLET 100 MG PO ×2 (02:35→13:38)
[2022-05-20 06:19] LABS: Troponin I < 0.012 ng/mL (0.01-0.034)
[2022-05-20] MEDS: ENOXAPARIN 40 MG/0.4 ML SYRINGE SUBCUT (10:29)
[2022-05-20] MEDS: SODIUM CHLORIDE 0.9% FLUSH 10 ML IV ×2 (10:30→20:01)
[2022-05-20] MEDS: ASPIRIN EC 81 MG TABLET PO (10:30)
[2022-05-20] MEDS: FUROSEMIDE 40 MG TABLET PO ×2 (10:30→20:00)
[2022-05-20] MEDS: ACETAMINOPHEN 325 MG TABLET 650 MG PO (10:33)
--- NOTE | 2022-05-20 12:56 | CM.DANOTE ---
Initial Discharge Assessment Note: Case reviewed, met with patient. Introduced self and role. Payer: [facility] PCP: Kimber Calderón 67 year old male admitted early this morning with chest pain. Echo and stress test ordered. Live in own home with spouse and is independent and drives. Plan: When medically cleared, discharge home. SEJ Discharge Planning/Care Management CM Discharge Assessment Start: 05/20/22 12:55 Freq: Status: Active Protocol: Document 05/20/22 12:55 (Rec: 05/20/22 12:56 [id number]) Discharge Planning Assessment Assigned [employer] Scientist Michaela Waggoner RN/DCP Advance Directives? No History Provided By Patient Prior Living Arrangements House Household Members spouse Type of transporation used prior to Drives own vehicle admit Independent with ADL's Yes Is patient alert and oriented? Yes Needs Assistance With Home Chores / Shopping Caregiver for Another No Barriers to Discharge No Referrals Initiated None needed Review Status In Process Next Review Type Continued Stay Review
--- NOTE | 2022-05-20 13:10 | DI.ECHO.S_ITS ---
:Name: SANTOS ARMAS Study Date: 05/20/2022 Height: 69 in : :[facility] ReadingLocation: Weight: 229 lb : : Gender: Male BSA: 2.2 m2 : :: 1955 Age: 67 yrs BP: 151/69 mmHg: :Reason For Study: Chest pain : :Ordering Physician: Sophia, : :Braden Performed By: Chad Pisano : :Referring: Braden Cortes : + + Interpretation Summary Limited study. Mild concentric left ventricular hypertrophy withejection fraction 60-65%. The aortic valve is moderately calcified. Comparison is made with the echocardiogram of 02/09/2022, there has been no significant change. Procedure: A two-dimensional transthoracic echocardiogram with color flow and Doppler was performed in limited views only. Comparison is made with the echocardiogram of 02/09/2022. The study quality was technically adequate. The patient was in normal sinus rhythm during the exam. Left Ventricle: The left ventricle is normal in size. There is mild concentric left ventricular hypertrophy. The ejection fraction is estimated to be 60-65%. There are no focal wall motion abnormalities. Right Ventricle: The right ventricle is normal in size and function. Mitral Valve: The mitral valve is normal. Aortic Valve: The aortic valve is moderately calcified. Tricuspid Valve: The tricuspid valve is normal. There is a trace or physiologic amount of tricuspid regurgitation. Pulmonary artery pressures cannot be estimated because of the lack of a measurable TR jet velocity. Pulmonic Valve: The pulmonic valve is not well visualized. Great Vessels: The IVC is of normal diameter and collapses greater than 50% with a sniff. This suggests a low right atrial pressure of 3 mm Hg. Pericardium/ Pleura There is no pericardial effusion. There is no pleural effusion. MMode/2D Measurements & Calculations LVIDd: 5.3 cm LA dimension: 4.4 cm LVIDs: 3.5 cm FS: 33.5 % IVSd: 1.1 cm LVPWd: 1.3 cm LV vitale. diameter/BSA (cm/m^2): 2.4 LV sys. diameter/BSA (cm/m^2): 1.6 TAPSE_phl: 2.5 cm Electronically signed by: Raquel Ahumada on Reading Physician:05/20/2022 04:25 PM
[2022-05-20] MEDS: INSULIN LISPRO 100 UNIT/ML 3ML VIAL SUBCUT ×2 (13:20→20:01)
[2022-05-20] MEDS: DOXAZOSIN 2 MG TABLET PO (13:39)
[2022-05-20] MEDS: ATORVASTATIN 20 MG TABLET 40 MG PO (20:00)
--- NOTE | 2022-05-20 22:10 | DI.NM.S_ITS ---
DATE OF SERVICE: 05/20/2022 PROCEDURE: Exercise stress test. INDICATION: Chest tightness, left arm discomfort, with underlying diabetes mellitus and hypertension. CARDIAC STRESS: The patient underwent exercise stress test under the supervision of an attending staff. He walked on Mickey protocol for 7 minutes and 05 seconds, achieved 93 percent of target heart rate with maximum heart rate 144 beats per minute. Baseline blood pressure 132/64 and peak blood pressure 220/70, suggestive of hypertensive blood pressure response. Baseline rhythm was sinus with possible left anterior fascicular block. During stress, there were no convincing inducible ischemic changes. The patient has intermittent PVCs during stress and recovery without any ventricular tachycardia. Mostly monomorphic isolated PVCs. At peak exercise, patient has chest tightness, which was on a scale of 5 to 10, 5 in intensity, in the middle of the chest without any radiation, as well as some shortness of breath. Tightness improved at 6 minutes in recovery. During chest tightness and in recovery, no ischemic electrocardiographic changes. CONCLUSION: Exercise stress test negative for inducible ischemia. The patient has chest tightness and shortness of breath during peak exercise and at that time, no obvious ischemic electrocardiographic changes seen. Diminished exercise tolerance. Functional aerobic impairment positive 9 percent. Hypertensive blood pressure response. Resting blood pressure 132/64 mmHg and peak blood pressure 220/70 mmHg. No sustained ventricular tachycardia or obvious atrial fibrillation. In absence of ischemic electrocardiographic changes, overall, low risk stress test. However, considering risk factors for coronary artery disease, consider repeating exercise stress test with imaging modality, like a nuclear study or exercise stress echo to improve sensitivity and specificity. Discussed the findings with Dr. Cortes. Chase Lopez - Daniel/doris doc#: [id number]/job#: [id number] dd: 05/20/2022 12:36:00 dt: 05/20/2022 22:03:00 DICTATING MD/COPIES TO: Marie Raphael MD COPIES MNE: RAY;
[2022-05-21] VITALS (8 sets, daily range): BP systolic 125–147; BP diastolic 52–75; PULSE 55–77; RESP 16–19; TEMP 36.4–36.7; O2SAT 95–98
[2022-05-21] MEDS: LEVOTHYROXINE 75 MCG TABLET PO (07:18)
[2022-05-21] MEDS: ASPIRIN EC 81 MG TABLET PO (08:39)
[2022-05-21] MEDS: FUROSEMIDE 40 MG TABLET PO (08:39)
[2022-05-21] MEDS: ENOXAPARIN 40 MG/0.4 ML SYRINGE SUBCUT (08:40)
--- NOTE | 2022-05-21 11:08 | P.DS_ITS ---
History of Present Illness History of Present Illness Date Patient Seen: 05/21/22 Time Patient Seen: 00:15 Chief complaint: L arm pain/shoulder, tight chest, 45 minutes Narrative: Mr. Lopez is a 67M with PMH DM, HTN, HL who presents to the hospital with chest tightness and left arm pain. He states he has never had pain like this before. He had no shortness of breath with this. He did have diaphoresis. He says the discomfort in his chest isn't pain but it is tight. This discomfort started at rest. No cough, fevers/chills. In the ED workup was done, vitals notable for elevated blood pressure. Labs notable for WBC 8.1, hgb 11.2, plts 303, creatinine 1.37. INR 1.0. Trop negative. BNP 102. COVID negative. EKG shows no acute abnormalities. Chest xray showed no acute abnormalities. He was ordered for aspirin and admitted for further treatment. Discharge Providers Provider Date of admission: 05/20/22 00:47 Discharge Date: 05/21/22 Primary care physician: Kimber Calderón MD Discharge provider: Braden Cortes DO Summary Hospital Course Discharge Diagnosis: 1. Chest pain -etiology concerning for cardiac etiology -has multiple risk factors -EKG showed no acute ischemia -trop negative x2 -HEART score 5 -ordered for ECHO which was reassuring, concentric LVH with EF 60-65% and mod aortic calcifications, no focal WMA's or significant change from prior echo -exercise non-nuc stress test did not show ischemia, but patient had CP and tightness during exam with high BP up to 220/70. Cardiology rec repeat nuc med stress test. -Lexiscan stress test was also reassuring with no evidence of ischemia. Again hypertensive to 208/98. -encouraged patient to speak with PCP about BP management given his very high BP's during exercise 2. Type 2 Diabetes -continue insulin sliding scale -continue lantus 40U daily -hold oral medications 3. Hypothyroidism -continue synthroid 4. Hypertension -continue amlodipine, losartan, lasix 5. Elevated creatinine -baseline unknown -suspect this is secondary to CKD stage 2 from DM, HTN -trend creatinine daily Time Spent with Patient Time spent: Greater than 30 minutes Exam Vital Signs (past 8 hours): Oxygen Delivery Method Room Air Oxygen Flow Rate 0 Narrative Exam Narrative: GEN: no acute distress HEENT: moist mucous membranes, PERRL NECK: trachea midline, no JVD PULM: clear bilaterally, no wheezes, rhonchi, rales CV: regular rate and rhythm, no murmurs ABD: soft, nontender nondistended, no organomegaly EXT: warm and well perfused with no edema NEURO: awake, alert, oriented, no focal deficits Objective Labs Result Diagrams: 05/19/22 19:22 05/19/22 19:22 [facility] Medical History (Updated 05/20/22 @ 02:04 by Mack Bryant DO) Hypothyroid Surgical History History of carpal tunnel repair History of carpal tunnel repair History of thyroidectomy Status post cholecystectomy Status post knee surgery Status post rotator cuff repair Family History Brother Age: 68 Hypertension High cholesterol Father Age: 88 High cholesterol Grandmother Diabetes mellitus Mother Age: 88 Diabetes mellitus Sister Age: 57 Diabetes mellitus High cholesterol Seizure disorder Social History household members: spouse Smoking Status: Never smoker Discharge Plan Discharge Plan Patient Disposition: Home Provider Discharge Comment: You were admitted for chest tightness and left arm pain which was concerning for heart attack. However all of your workup including heart enzymes, echocardiogram and 2 stress tests (regular and nuclear) were reassuring that your heart appears healthy and no evidence of ischemia was seen. Please follow-up with your PCP to discuss this further and if there might be a different reason that we did not find. Discharge orders & Medications Prescriptions: Continued CALCIUM CARBONATE 500 mg PO PRN PRN (Reason: Acid Reflux) Qty: 0 Coenzyme Q10 (#COQ10) 300 mg PO Q DAY Qty: 0 furosemide 40 MG tablet 40 mg PO BID Qty: 0 INSULIN LISPRO (#HUMALOG (SHORT ACTING)) 100 u SC SLIDE Qty: 0 losartan [Cozaar] 100 MG tablet 100 mg PO QDAY Qty: 0 LEVOTHYROXINE SODIUM (#SYNTHROID) tablet 112 mcg PO DAILY Qty: 0 insulin glargine [Lantus U-100 Insulin] 100 UNIT/1 ML solution 15 unit SQ QHS Qty: 0 amlodipine [Norvasc] 5 MG tablet 5 mg PO QDAY Qty: 0 atorvastatin 40 MG tablet 40 mg Q DAY Qty: 0 sertraline 100 mg Tablet 100 mg PO DAILY lorazepam 0.5 mg Tablet 0.5 mg PO TID PRN (Reason: Anxiety) metoprolol tartrate 25 mg Tablet 12.5 mg PO BID tamsulosin 0.4 mg PO DAILY clopidogrel 75 mg Tablet 75 mg PO DAILY metformin 500 mg Tablet 500 mg PO BID spironolactone 50 mg Tablet 50 mg PO DAILY Follow up/Referrals: Kimber Calderón MD [Primary Care Provider] - 2 Weeks Discharge Data Primary Care Provider: Kimber Calderón Attending Provider: Leonard Schwarz
--- NOTE | 2022-05-21 12:18 | CM.DPNOTE ---
Discharge Planning Note: Patient to go for 2nd part of stress test today. According to hospitalist, if negative, he will be discharged. Plan: When medically cleared, return home to care of spouse. Michaela Waggoner RN/DCP
[2022-05-21] MEDS: LOSARTAN 50 MG TABLET 100 MG PO (13:44)
[2022-05-21] MEDS: DOXAZOSIN 2 MG TABLET PO (13:57)
[2022-05-21] MEDS: AMLODIPINE 5 MG TABLET PO (13:57)
[2022-05-21] MEDS: SODIUM CHLORIDE 0.9% FLUSH 10 ML IV (13:58)
[2022-05-21] MEDS: INSULIN LISPRO 100 UNIT/ML 3ML VIAL SUBCUT (14:00)
--- NOTE | 2022-05-21 18:17 | DI.NM.S_ITS ---
DATE OF SERVICE: 05/21/2022 PROCEDURE: Exercise perfusion study. INDICATION: Chest pain with underlying diabetes mellitus, hypertension. RADIOPHARMACEUTICAL: 28.1 millicurie technetium-99m Myoview IV was injected at stress and 11.1 millicurie technetium-99m Myoview IV was injected at rest. CARDIAC STRESS: The patient underwent exercise perfusion study under the supervision of an attending staff. The patient walked on Mickey protocol for 8 minutes and achieved maximum heart rate of 154, which was 99 percent of target heart rate. Baseline blood pressure 148/90 mmHg. Peak blood pressure 208/98 mmHg. Achieved 10.1 METs of workload. VERITO -2 percent. Baseline rhythm was sinus with underlying left anterior fascicular block. During exercise stress, no convincing ischemic changes seen. The patient has some occasional PVCs. No complicated sustained arrhythmias seen. The patient had chest tightness, which was on a scale of 1 to 10, 4 in intensity without any radiation during peak exercise and got improved during recovery in 5 minutes. No associated ischemic electrocardiographic changes. Also, had some shortness of breath. RAW DATA: There is increased subdiaphragmatic activity. The patient's weight is 232 pounds. GATED STUDY: Resting LV ejection fraction 73 percent and stress LV ejection fraction 75 percent without any obvious wall motion abnormalities. Resting end- diastolic volume 125 mL. TID ratio 0.67, which is within normal limits. Lung/heart ratio 0.28, which is within normal limits. MYOCARDIAL PERFUSION SCAN: Stress supine, resting supine and stress prone images were compared to each other. Resting supine images revealed small size, mildly decreased perfusion of inferior wall and moderately decreased perfusion of distal inferior wall extending into the distal inferolateral wall and inferoapex. Stress supine and stress prone images revealed normal myocardial perfusion. No convincing ischemia or infarction. CONCLUSION: This is a normal myocardial perfusion study, as stress supine and stress prone images revealed normal myocardial perfusion. Good exercise tolerance. Functional aerobic impairment -2 percent. Hypertensive blood pressure response. Peak blood pressure 208/98. The patient had chest tightness at peak exercise without any ischemic inducible without any inducible ischemic changes. No complex arrhythmias seen. Overall, low risk perfusion study. Correlate clinically. The patient had a perfusion study in February,, at that time also had diaphragmatic tissue attenuation artifact, which got improved during prone images. No significant change. Chase Lopez - ANA/russell/doris doc#: [id number]/job#: [id number] dd: 05/21/2022 16:58:00 dt: 05/21/2022 17:58:00 DICTATING /COPIES TO: Marie Raphael MD COPIES MNE: RAY;
--- NOTE | 2022-05-21 19:26 | PC.NURSE ---
Pt A&Ox3. VSS, afebrile on RA, Sinus rhythm, sinus ginny on telemetry. He is NPO this a.m. for repeat stress test (nuclear). He is independently ambulatory in his room and denies complaints this shift. BG monitoring with sliding scale. Hospitalist reviews results with patient shortly after dinner and he is cleared for discharge home. He verbalizes understanding and plans to follow up with his PCP. He is escorted to front of the hospital for escort home with his in private vehicle. He has all of his belongings with him and no new medications are ordered.
== END 2022-05-21 18:55 | disposition home or self-care (01) ==
LOC: ED 23:54 → AC 05-20 00:47
PROVIDERS: Admitting Provider Internal Medicine; Emergency Provider Emergency Medicine; PCP Family Medicine; Referring Provider Emergency Medicine; Visit Provider Internal Medicine
DX: R07.9 Chest pain, unspecified (principal); F17.210 Nicotine dependence, cigarettes, uncomplicated; E11.9 Type 2 diabetes mellitus without complications; Z79.4 Long term (current) use of insulin; E03.9 Hypothyroidism, unspecified; I10 Essential (primary) hypertension; R79.89 Other specified abnormal findings of blood chemistry; Z20.822 Contact with and (suspected) exposure to COVID-19
CPT/HCPCS: 36415; 71045; 78452; 80053; 82550; 82553; 82962; 83690; 83880; 84484; 85025; 85379; 85610; 85730; 87635; 93005; 93017; 93307; 96372; 99284; C9803; G0378; A9502; J1650

== ENCOUNTER → 2023-09-22 17:05 | Outpatient (CLI) | payer OTHER, SELFPAY ==
[2022-05-20 02:16] VITALS: BMI 34.0
--- NOTE | 2023-09-22 | DI.MRI.S_ITS ---
PROCEDURE: MR KNEE RT WO CON INDICATIONS: Unspecified internal derangement of right knee TECHNIQUE: Noncontrast sagittal PD fast spin echo and T2 fast spin echo with fat saturation, sagittal 3-D FLASH with fat saturation; coronal T1 spin echo and PD fast spin echo with fat saturation, and axial PD fast spin echo with fat saturation through the knee. COMPARISON: [facility], CR, XR KNEE 3 VIEWS RIGHT, 09/05/2023, 8:47. FINDINGS: Image quality: Excellent. Menisci: The medial meniscus is severely truncated, possibly from prior meniscectomy. There is complex tear of the remnant posterior horn of the medial meniscus. There is horizontal tear involving the posterior horn of the lateral meniscus. There is ill-defined degenerative tear of the anterior root of the lateral meniscus with several parameniscal cysts. Cruciate ligaments: The anterior and posterior cruciate ligaments appear intact. Medial structures: The medial collateral ligament appears intact. The semimembranosus tendon insertions and meniscocapsular junction appear intact. Visualized portions of the pes anserinus tendons appear normal. No abnormal bursal fluid. Lateral structures: The lateral collateral ligament, long and short heads of the biceps femoris tendon appear intact. The popliteus tendon appears normal. Iliotibial band appears normal. Anterior structures: The quadriceps and patellar tendons appear intact. Thickening and heterogeneous signal of the medial patellofemoral ligament with cystic changes, likely sequelae of remote injury. Patellar alignment is normal. No femoral trochlear dysplasia or ventral trochlear prominence. No edema in the infrapatellar fat pad. Bones and cartilage: No bone marrow contusions or fractures. There is tricompartmental cartilage thinning and fibrillation, most pronounced in the medial femorotibial compartment. Joint space: There is small knee joint effusion. No Sanderson's cyst. Normal appearing synovial plicae are incidentally noted. IMPRESSION: 1. The medial meniscus is truncated, presumably secondary to prior meniscectomy. Please correlate with surgical history. There is complex tear of the remnant posterior horn of the medial meniscus. 2. Horizontal tear of the posterior horn of the lateral meniscus. There is also degenerative tear of the anterior root of the lateral meniscus. 3. Thickening, irregularity and cystic changes of the medial patellofemoral ligament, likely sequelae of remote injury. 4 Tricompartmental cartilage thinning and fibrillation, most pronounced in the medial femorotibial compartment. 5. Small knee joint effusion. Dictated by: Tacos Gibson M.D. on 09/23/2023 at 10:59 Approved by: Tacos Gibson M.D. on 09/23/2023 at 11:27
== END ==
PROVIDERS: PCP Family Medicine; Referring Provider Physician Assistant Medical; Visit Provider Physician Assistant Medical
DX: S83.231A Complex tear of medial meniscus, current injury, right knee, initial encounter (principal); S83.281A Other tear of lateral meniscus, current injury, right knee, initial encounter; M25.461 Effusion, right knee
CPT/HCPCS: 73721

== ENCOUNTER 2024-09-09 14:15 | Outpatient (RCR) | payer OTHER, MEDICARE, SELFPAY ==
[2022-05-20 02:16] VITALS: BMI 34.0
== END 2024-09-09 16:15 ==
LOC: CAR 14:15
PROVIDERS: PCP Family Medicine; Referring Provider Thoracic Surgery (Cardiothoracic Vascular Surgery); Visit Provider Thoracic Surgery (Cardiothoracic Vascular Surgery)
DX: Z95.2 Presence of prosthetic heart valve (principal)
CPT/HCPCS: 93798

== ENCOUNTER → 2025-03-21 13:22 | Outpatient (CLI) | payer OTHER, MEDICARE, SELFPAY ==
[2022-05-20 02:16] VITALS: BMI 34.0
--- NOTE | 2025-03-21 13:28 | DI.RAD.S_ITS ---
PROCEDURE: XR CHEST 2V INDICATIONS: CHEST PAIN TECHNIQUE: 2 views of the chest were acquired. COMPARISON: [facility], , XR CHEST 1V, 05/19/2022, 19:53. [facility], , CHEST 2 VIEW, 01/30/2014, 2:41. FINDINGS: Surgical changes and devices: Multiple EKG leads overlie the thorax. Lungs and pleura: Lungs are clear. No pleural effusions or pneumothorax. Mediastinum: Mediastinal contours are normal. Heart size is normal. Status post sternotomy and valve replacement. Bones and chest wall: No suspicious bony abnormalities. Soft tissues appear unremarkable. Multilevel degenerative disc disease noted. Lower cervical spine fusion noted. Right shoulder post operative changes noted. IMPRESSION: No acute cardiopulmonary abnormality is seen. Dictated by: Radha Gandara M.D. on 03/21/2025 at 15:45 Approved by: Radha Gandara M.D. on 03/21/2025 at 15:53
[2025-03-21 15:14] LABS: Alanine Aminotransferase 25 IU/L (<50); Albumin 4.3 g/dL (3.5-5.0); Albumin Globulin Ratio 1.4 (1.0-2.8); Alkaline Phosphatase 79 U/L (38-126); Blood Urea Nitrogen 47 mg/dL (9-20); Calcium 8.3 mg/dL (8.4-10.2); Carbon Dioxide 26 mmol/L (22-32); Chloride 101 mmol/L (98-107); Estimated Glomerular Filt Rate 33 mL/min (>60); Globulin 3.0 g/dL (1.7-4.1); Glucose 183 mg/dL (70-99); HEMOLYSIS < 15 (0-50); Potassium 4.3 mmol/L (3.4-5.1); Sodium 137 mmol/L (137-145); Total Protein 7.3 g/dL (6.3-8.2)
[2025-03-21 15:26] LABS: Troponin I < 0.012 ng/mL (0.01-0.034)
== END ==
PROVIDERS: PCP Family Medicine; Referring Provider Nurse Practitioner; Visit Provider Nurse Practitioner
DX: R07.9 Chest pain, unspecified (principal); Z98.890 Other specified postprocedural states
CPT/HCPCS: 36415; 71046; 80053; 84484

== ENCOUNTER 2025-05-20 17:58 | Emergency (ER) | payer OTHER, SELFPAY ==
[2022-05-20 02:16] VITALS: BMI 34.0
[2025-05-20 18:07] VITALS: BP 216/78; PULSE 66; RESP 16; TEMP 36.6; O2SAT 97; BMI 32.5
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
[2025-05-20] MEDS: ACETAMINOPHEN 325 MG TABLET 975 MG PO (18:20)
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
[2025-05-20 19:51] VITALS: BP 186/87; PULSE 82; RESP 16; O2SAT 98
== END 2025-05-20 19:40 | disposition home or self-care (01) ==
PROVIDERS: Emergency Provider Emergency Medicine; PCP Family Medicine
DX: S76.311A Strain of muscle, fascia and tendon of the posterior muscle group at thigh level, right thigh, initial encounter (principal); M25.461 Effusion, right knee; W10.8XXA Fall (on) (from) other stairs and steps, initial encounter
CPT/HCPCS: 73562; 99283